=== PATIENT | male | born 1975 | race Caucasian/White ===

== ENCOUNTER 2018-02-07 11:31 | Emergency (ER) | payer BC ==
[2018-02-07 11:44] VITALS: BP 163/92
--- NOTE | 2018-02-07 12:09 | XRAY Report ---
Procedure Date: 02/07/2018 Accession Number: [id number] / [id number] Procedure: XR - Wrist 4 View LT CPT Code: FULL RESULT: EXAM: LEFT WRIST RADIOGRAPHY EXAM DATE: 02/07/2018 11:59 AM. CLINICAL HISTORY: Fall, pain. COMPARISON: None. TECHNIQUE: 4 views. FINDINGS: Bones: Normal. No fractures or bone lesions. Joints: Normal. No subluxations. Soft Tissues: Mild soft tissue swelling over the dorsal aspect of the wrist. IMPRESSION: No fracture or malalignment. RADIA
--- NOTE | 2018-02-07 12:54 | ED Physician Documentation ---
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 He has had an issue with this previously and has had his tonsils out for recurrent strep. He feels similar to what he has had previously with strep. He has swollen lymph nodes in the right neck. He has not had much in the way of a cough or fever. In addition last night he fell on his outstretched left hand playing pickle ball and has some pain over the thenar eminence. Review of Systems Constitutional: reports: Myalgias, Fatigue. denies: Fever Eyes: denies: Decreased vision Ears: denies: Ear pain Nose: reports: Rhinorrhea / runny nose, Congestion Throat: reports: Sore throat Cardiac: denies: Chest pain / pressure, Palpitations Respiratory: reports: Cough. denies: Dyspnea GI: denies: Nausea, Vomiting Musculoskeletal: reports: Extremity pain, Joint pain. denies: Neck pain, Back pain, Extremity swelling Neurologic: denies: Generalized weakness, Focal weakness, Numbness PD PAST MEDICAL HISTORY - Past Medical History Past Medical History: Yes Cardiovascular: Hypertension - Past Surgical History Past Surgical History: Yes Ortho: Shoulder arthroplasty - Present Medications Home Medications: Ambulatory Orders Medication Instructions Recorded Confirmed Azithromycin [Zithromax] 250 mg PO DAILY #6 tablet 02/07/18 Losartan [Cozaar] 50 mg PO DAILY 02/07/18 02/07/18 - Allergies Allergies/Adverse Reactions: Allergies Allergy/AdvReac Type Severity Reaction Status Date / Time No Known Drug Allergies Allergy Verified 02/07/18 11:48 - Social History Does the pt smoke?: No Smoking Status: Never smoker Does the pt drink ETOH?: Yes Does the pt have substance abuse?: Yes Substance Use and Type: Marijuana - Immunizations Immunizations are current?: Yes PD ED PE NORMAL - Vitals Vital signs reviewed: Yes (hypertensive) - General General: Alert and oriented X 3, No acute distress, Well developed/nourished - HEENT HEENT: Atraumatic, PERRL, EOMI, Other (There is erythema and distortion of the landmarks on the right the left shows inflamation in the attic only. The pharynx is with erythema and no exudate tonsils are absent. ) - Neck Neck: Supple, no meningeal sign, No bony TTP - Cardiac Cardiac: RRR, No murmur - Respiratory Respiratory: No respiratory distress, Clear bilaterally - Abdomen Abdomen: Soft, Non tender - Back Back: No CVA TTP, No spinal TTP - Derm Derm: Normal color, Warm and dry, No rash - Extremities Extremities: No deformity, Other (There is tenderness to the right hand over the thenar eminnace and not over the anatomic snuff box. He does not have tendernss over the wrist joint itself but does have bruising to the thenar eminance. 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, No motor deficit, No sensory deficit, Normal speech Eye Opening: Spontaneous Motor: Obeys Commands Verbal: Oriented GCS Score: 15 - Psych Psych: Normal mood, Normal affect Results - Vitals Vitals: Vital Signs - 24 hr 02/07/18 11:35 Temperature 36 C L Heart Rate 78 Respiratory 18 Rate Blood Pressure 163/92 H O2 Saturation 98 Oxygen O2 Source Room air - Labs Labs: Laboratory Tests 02/07/18 11:41 Group A Strep Rapid Negative - Rads (name of study) wrist Radiology: Prelim report reviewed (Impression: No fracture or malalignment.), EMP read indepedently, See rad report PD MEDICAL DECISION MAKING - ED course Complexity details: reviewed results, re-evaluated patient, considered differential, d/w patient, d/w family ED course: 42-year-old male with right otitis media and into the hand has no evidence of fracture and he has excellent range of motion with his hand and does not want to place a splint. Here in the emergency department is administered dexamethasone 10 mg orally his rapid strep is negative we will place him on some azithromycin for otitis media. - Sepsis Event Vital Signs: Vital Signs - 24 hr 02/07/18 11:35 Temperature 36 C L Heart Rate 78 Respiratory 18 Rate Blood Pressure 163/92 H O2 Saturation 98 Oxygen O2 Source Room air Departure - Departure Disposition: 01 Home, Self Care Clinical Impression: Otitis media Qualifiers: Otitis media type: suppurative Chronicity: acute Laterality: bilateral Recurrence: not specified as recurrent Spontaneous tympanic membrane rupture: without spontaneous rupture Qualified Code(s): H66.003 - Acute suppurative otitis media without spontaneous rupture of ear drum, bilateral Contusion, hand Qualifiers: Encounter type: initial encounter Laterality: left Qualified Code(s): S60.222A - Contusion of left hand, initial encounter Condition: Stable Instructions: ED Contusion Hand, ED Otitis Media Acute Adult Follow-Up: Your, doctor [Other] Prescriptions: Azithromycin [Zithromax] 250 mg PO DAILY #6 tablet Discharge Date/Time: 02/07/18 13:07
[2018-02-07] MEDS: DEXAMETHASONE 10 MG/ML VIAL PO STA (12:59)
== END 2018-02-07 13:07 | disposition home or self-care (01) ==
LOC: ED 11:31
DX: H66.003 Acute suppurative otitis media without spontaneous rupture of ear drum, bilateral (principal); S60.222A Contusion of left hand, initial encounter; W18.39XA Other fall on same level, initial encounter; Y93.69 Activity, other involving other sports and athletics played as a team or group; I10 Essential (primary) hypertension
CPT/HCPCS: 87070; 87430; 99283